=== PATIENT | female | born 1930 | race Caucasian/White ===

== ENCOUNTER 2016-11-12 13:44 | Inpatient (IN) | payer MEDICARE, BC, OTHER ==
[~2016-11-12] VITALS: Ht 154.9 cm; Wt 49.9 kg
[~2016-11-12 13:44] MED LIST: *ECHO -; /AMLO25TA; /BENA10TA; /ESOM40CA; /WARF25TA; /WARF5TA; ACET65TA; AMLO10TA PO; BACTROCREA TOPICALLY; BENA10TA PO; BONIVA; CALCCHW12; CALCIUM SUPPLIMENT; CELE10TA; CELEXA10 PO; COLA100C2; COUM2.5T17 PO; DETR2CAP PO; DRIS50002 PO; DRISDOL; FERROUS325 PO; FLAXOIL; LOTE10TA11 PO; METO5TAB2; MILKSUS PO; MIRA3350 PO; MIRALEX; NORV5TAB PO; PERC5TAB12 PO; PHENERGA25 PO; PRAV1TAB39 PO; PRAV40TA; PRAVACHOL; REGL5TAB2 PO; SENN8.6T5; SENO8.6T10 PO; SLOW160T12 PO; SLOWTAB; THERGRAN; TOLT2TA; TYLE325T5 PO; VANC125C2 PO; VICO5TAB; VICO5TAB16 PO; VITA-113; VITACAP8; VITAMIN B-12; VITAMIN D; WARF-18 PO; WELCHOL; ZEBE5TAB; ZEBE5TAB PO; ZOFR20TA PO; [UNRECOGNIZED DRUG - OTHER]; magnesium
[2016-11-12] MEDS ORDERED: XARE15TA PO (14:12)
[2016-11-12 15:43] LABS: ADD MORPHOLOGY? NO; BASO % 0.2 % (0.0-1.0); EOS % 0.1 % (0.0-3.0); IMMATURE GRANULOCYTE % 0.7 % (0-0); LYMPH # 0.9 10^3/uL (1.5-4.5); LYMPH % 6.7 % (24.0-44.0); MEAN CORPUSCULAR HEMOGLOBIN 27.7 pg (27.0-33.0); MEAN CORPUSCULAR HGB CONC 31.7 g/dl (32.0-36.5); MEAN CORPUSCULAR VOLUME 87.5 fl (80.0-96.0); MONO # 1.3 10^3/uL (0.0-0.8); MONO % 9.6 % (0.0-5.0); NEUTROPHILS # 11.1 10^3/uL (1.8-7.7); NEUTROPHILS % 82.7 % (36.0-66.0); PLATELET COUNT, AUTOMATED 265 10^3/uL (150-450); RED CELL DISTRIBUTION WIDTH 14.1 % (11.5-14.5); WHITE BLOOD COUNT 13.5 10^3/uL (4.0-10.0)
[2016-11-12 15:50] LABS: VENOUS BASE EXCESS -3.9 (-2.0-2.0); VENOUS O2 SATURATION 56.7 % (60.0-80.0); VENOUS PARTIAL PRESSURE CO2 57.7 mmHg (38.0-50.0); VENOUS PARTIAL PRESSURE O2 34.6 mmHg (30.0-50.0); VENOUS STANDARD HCO3 20.5 MEQ/L; VENOUS TOTAL CO2 25.8 MEQ/L (24.0-28.0)
[2016-11-12 16:08] LABS: ALBUMIN 3.1 GM/DL (3.2-5.2); ALBUMIN/GLOBULIN RATIO 0.79 (1.00-1.93); BILIRUBIN,DIRECT 0.5 MG/DL (0.0-0.2); BILIRUBIN,TOTAL 1.4 MG/DL (0.2-1.0); CALCIUM LEVEL 8.7 MG/DL (8.8-10.2); CREATININE FOR GFR 1.4 MG/DL (0.55-1.02); GLOMERULAR FILTRATION RATE 37.9 (>32); POTASSIUM SERUM 4.5 MEQ/L (3.5-5.1)
--- NOTE | 2016-11-12 16:34 | REP ---
CHEST, TWO VIEWS: There is no evidence of acute infiltrate. No pleural effusion is seen. The heart is normal in size. The mediastinal silhouette is unremarkable. The visualized osseous structures are intact. There are multiple sternal wires. IMPRESSION: No acute pulmonary disease. Signed by Leland Torres MD 11/12/2016 05:23 P
[2016-11-12] MEDS ORDERED: NS 1,000 ML IV ONE (17:45)
[2016-11-12] MEDS ORDERED: CEPHALEXIN 500 MG CAP PO ONE (19:15)
[2016-11-12] MEDS ORDERED: ONDANSETRON 4MG/2ML VIAL (J2405) IV PRN (20:30)
[2016-11-12] MEDS ORDERED: NS 1,000 ML IV SCH (21:00)
[2016-11-12 21:04] LABS: REASON FOR REVIEW COMPREHENSIVE REVIEW
[2016-11-12 21:07] LABS: RETIC HEMOGLOBIN EQUIVALENT 27.4 pg (24-36); RETICULOCYTE % 1.7 % (0.5-1.5)
[2016-11-12 21:40] LABS: INR 1.47
[2016-11-12 21:52] VITALS: BP 140/60
[2016-11-12] MEDS: SENOKOT S TAB PO SCH (21:59)
[2016-11-12 22:00] LABS: PERCENT SATURATION 6.7 % (13.2-45.0)
--- NOTE | 2016-11-12 22:10 | REPUSA ---
Clinical statement: elevated bilirubin. Findings: The liver demonstrates uniform echotexture and echogenicity, with no mass lesions. The gall bladder is distended and contains numerous echogenic shattering foci. There is no evidence of gallbla dder wall thickening. The common bile duct measures 5 mm and is within normal limits. The pancreas de monstrates normal contour and appearance. The spleen is unremarkable. The right kidney measures 9.2 c m in length and the left kidney measures 9.1 cm in length. There is no evidence of hydronephrosis or nephrolithiasis. The visualized portions of the aorta and inferior vena cava are within normal limits . No ascites are seen. Impression: Cholelithiasis without evidence of acute cholecystitis.
[2016-11-12 22:30] VITALS: BP_SYST 139; BP_SYST 142; BP_SYST 150; BP_DIAS 60; BP_DIAS 62; BP_DIAS 63
--- NOTE | 2016-11-12 22:49 | HPE ---
DATE OF ADMISSION: 11/12/2016 PRIMARY CARE PROVIDER: Dr. Speedy Lea. CHIEF COMPLAINT: Nausea, vomiting, dizziness, stomach upset. HISTORY OF PRESENT ILLNESS: This is an 86-year-old female patient, history limited secondary to dementia, with underlying medical history of hypertension, osteoporosis, vitamin D deficiency, stroke, anemia, history of Clostridium (C.) difficile last year, and as per patient also has history of vertigo secondary to inner ear problem. Baseline lives at home with daughter, ambulating with a cane. Has not had any recent fall. Presented since yesterday with stomach upset, no pain, with nausea and vomiting two times today, nonbloody, nonbilious. Denies any dark stool, diarrhea. Last bowel movement was this morning. Denies any melena or hematemesis. Reported feeling dizzy and lightheaded. As per patient, occasionally it is positional, occasionally it just happens on its own. The patient reported that she does have inner ear problem that causes dizziness. Otherwise, denies any chest pain, pressure, discomfort, shortness of breath, paresthesia. No recent gastrointestinal (GI) bleed. There is no anticoagulation. Has history of porcine aortic valve. Last year, the patient as in the hospital with rectal bleeding as well, in which anticoagulation was on hold. Denies any constipation, diarrhea. Denies any fever, chills, sick contacts, coughing, palpitations. ALLERGIES: FERRIC OXIDE, LATEX. PAST MEDICAL HISTORY: 1. Bioprosthetic aortic valve. 2. Hypertension. 3. Osteoporosis. 4. C. Difficile. 5. Vitamin D deficiency. 6. Stroke with no residual deficit. 7. Anemia. 8. Questionable history of congestive heart failure but not documented. PAST SURGICAL HISTORY: 1. Hysterectomy. 2. Tonsillectomy. 3. Porcine aortic valve. 4. Appendectomy. SOCIAL HISTORY: Denies smoking or illicit drug use or alcohol use. Lives at home with daughter. FAMILY HISTORY: Denies family history of cancer. REVIEW OF SYSTEMS: Reported lightheadedness, nausea, vomiting, stomach upset. All other review of systems has been negative. The patient's review of systems was limited because the patient is a poor historian. HOME MEDICATIONS: - Norvasc 5 mg by mouth daily - benazepril 10 mg by mouth daily - Xarelto 15 mg by mouth at bedtime PHYSICAL EXAMINATION: VITAL SIGNS: Temperature 97.6, pulse 70, blood pressure 140/60 GENERAL: Patient alert, comfortable in no acute distress. HEENT: Normocephalic, atraumatic. PULMONARY: Bilaterally clear to auscultation. CARDIAC: Regular rate and rhythm. Systolic murmur with end-systolic snap. ABDOMEN: Soft, nontender, nondistended. Positive bowel sounds. EXTREMITIES: No edema bilateral lower extremities. NEUROLOGIC: Is able to move bilateral upper and lower extremities with no limitation. RECTAL: Patient refused rectal exam, but is counseled on the need for followup with stool for occult. ELECTROCARDIOGRAM: EKG sinus rhythm at 96. No ST segment changes. LABORATORY DATA: WBC 13.5, hemoglobin and hematocrit 9.5 over 30, platelets 265. Chemistry: Sodium 137, potassium 4.5, chloride 103, bicarbonate 25, BUN 40, creatinine 1.4, lactic acid 2.6, repeat 0.9, total bilirubin 1.4, direct bilirubin 0.5. Cardiac enzymes negative times one. IMAGING: Chest x-ray shows within normal limits. No acute pulmonary disease. ASSESSMENT AND PLAN: This is an 86-year-old female patient with underlying medical history of hypertension, osteoarthritis, Clostridium (C.) difficile infection, vitamin D deficiency, stroke with no residual deficit, anemia, questionable congestive heart failure (CHF), and a bioprosthetic aortic valve replacement, questionable history of paroxysmal atrial fibrillation as well on anticoagulation with Xarelto. The patient presented since yesterday with lightheadedness, stomach upset, nausea and vomiting. 1. Lightheadedness. The patient stated that she has chronic inner ear problems causing her to be lightheaded. Currently no focal neurological deficit on exam. We will get MRI of the brain. Vestibular physical therapy. Followup orthostatic vital signs. 2. Acute kidney injury, likely secondary to prerenal azotemia. Intravenous (IV) fluids have been given. Will continue to monitor BUN and creatinine. 3. Stomach upset with elevated bilirubin and nausea and vomiting. Clear liquid diet for now. IV fluids have been given. Will get ultrasound of the abdomen, as well as CT of the abdomen and lipase. Advance diet as tolerated. Zofran as needed. Protonix twice a day. 4. Anemia. The patient does have a history of gastrointestinal (GI) bleeding. Currently hemodynamically stable. Followup orthostatic vital signs. Holding Xarelto. Anemia workup is ordered. Patient refused rectal exam. Will get stool occult. Serial hemoglobin and hematocrit. Consented for transfusion. 5. Hypertension. Continue Norvasc and benazepril. Monitor blood pressure. Adjust as needed. 6. Questionable history of paroxysmal atrial fibrillation with Xarelto on hold. Patient not on any beta blockers. 7. History of aortic valve replacement with bioprosthetic valve. Holding Xarelto at this time. Outpatient followup. 8. Lactic acidosis, resolved. 9. Leukocytosis, possibly reactive to GI symptoms. Possibly due to gastritis. Followup cultures. IV fluids have been ordered. Urinalysis (UA) appreciated. Will continue to monitor. Withholding antibiotics given no obvious source of infection. 10. Deep venous thrombosis (DVT) prophylaxis. Sequential compression devices. Avoid anticoagulation given patient does have a history of GI bleed and has been actively worked up for GI at this point. If hemoglobin and hematocrit are stable , will consider restarting Xarelto. DISPOSITION: Pending further workup, clinical improvement, physical therapy. MTDD
[2016-11-12] MEDS: PANTOPRAZOLE 40MG INJ (PROTONIX) (C9113) IV SCH (23:00)
--- NOTE | 2016-11-12 23:27 | REPUSA ---
CT of the abdomen and pelvis without contrast Clinical statement: Pain. Elevated bilirubin. Technique: Multiple axial CT images were obtained from the base of the lungs to the floor of the pelv is utilizing 5 mm axial slices without administration of contrast. Coronal and sagittal reconstructio ns were also obtained. Comparison: 05/29/2015. Findings: Chest: The visualized lung bases are clear. Abdomen: The kidneys are normal in size bilaterally. There is no evidence of hydronephrosis or nephro lithiasis. The gallbladder is distended, with numerous gallstones appreciated. No pericholecystic inf lammatory changes are seen however. The liver, spleen, pancreas, and adrenal glands are unremarkable. The aorta demonstrates normal caliber and contour. There is no abdominal lymphadenopathy or ascites. Pelvis: The bowel is unremarkable, with no obstructive or inflammatory changes. The urinary bladder i s within normal limits. There is no pelvic lymphadenopathy or ascites. The other pelvic structures ap pear unremarkable. Bones: There are no suspicious osseous abnormalities seen. There is open reduction internal fixation of the proximal right femur. Chronic compression abnormality of L2 is unchanged. There is a large dis c osteophyte complex at L1/L2. Impression: 1. Cholelithiasis, without discrete evidence of acute cholecystitis. This corresponds with the findin gs of the earlier ultrasound 11/12/2016. 2. No evidence of hydronephrosis or nephrolithiasis. 3. The other CT findings are grossly stable. 3. No obstructive or inflammatory bowel changes.
[2016-11-13] VITALS (7 sets, daily range): BP systolic 121–142; BP diastolic 55–65
[2016-11-13 06:19] LABS: MEAN CORPUSCULAR HEMOGLOBIN 28.1 pg (27.0-33.0); MEAN CORPUSCULAR HGB CONC 33.2 g/dl (32.0-36.5); MEAN CORPUSCULAR VOLUME 84.6 fl (80.0-96.0); RED CELL DISTRIBUTION WIDTH 13.7 % (11.5-14.5); WHITE BLOOD COUNT 8.3 10^3/uL (4.0-10.0)
[2016-11-13 06:46] LABS: ALBUMIN 2.4 GM/DL (3.2-5.2); ALBUMIN/GLOBULIN RATIO 0.62 (1.00-1.93); ALKALINE PHOSPHATASE 42 U/L (45-117); ALT/SGPT 10 U/L (12-78); ANION GAP 7 MEQ/L (8-16); AST/SGOT 16 U/L (15-37); BILIRUBIN,TOTAL 1.1 MG/DL (0.2-1.0); BLOOD UREA NITROGEN 33 MG/DL (7-18); CALCIUM LEVEL 8.2 MG/DL (8.8-10.2); CARBON DIOXIDE LEVEL 26 MEQ/L (21-32); CHLORIDE LEVEL 106 MEQ/L (98-107); CREATININE FOR GFR 0.93 MG/DL (0.55-1.02); GLOMERULAR FILTRATION RATE > 60.0 (>32); GLUCOSE, FASTING 88 MG/DL (83-110); MAGNESIUM LEVEL 1.7 MG/DL (1.8-2.4); POTASSIUM SERUM 3.5 MEQ/L (3.5-5.1); SODIUM LEVEL 139 MEQ/L (136-145); TOTAL PROTEIN 6.3 GM/DL (6.4-8.2)
--- NOTE | 2016-11-13 08:26 | ECGEPIP ---
Stationary ECG Study [facility] - ED Test Date: 2016-11-12 Pat Name: ARACELI RIGGINS Department: Room: - Gender: F [employer]: nae : [id number] Requested By: FILOMENA KAMARA Order Number: [id number] Reading MD: Yusuf Brooks Measurements Intervals [place] Rate: 95 P: 83 SC: 160 QRS: -4 QRSD: 87 T: 41 QT: 350 QTc: 440 Interpretive Statements SINUS RHYTHM POSSIBLE LAE SIMILAR TO 05/31/15 Electronically Signed On 11-13-2016 8:26:38 EDT by Yusuf Brooks
[2016-11-13] MEDS: SENOKOT S TAB PO SCH ×2 (10:27→20:47)
[2016-11-13] MEDS: PANTOPRAZOLE 40MG INJ (PROTONIX) (C9113) IV SCH ×2 (10:28→20:47)
[2016-11-13] MEDS: amLODIPine 5 MG TAB PO SCH (10:28)
[2016-11-13] MEDS: MECLIZINE 25 MG TABLET PO PRN (10:56)
[2016-11-13] MEDS: BENAZEPRIL 5 MG TAB PO SCH (14:48)
[2016-11-13] MEDS ORDERED: MAG SULF 1GM/100ML (MAG RUN) 1 GM in APPROPRIATE DILUENT 1 EA IV ONE (15:00)
[2016-11-14] VITALS (7 sets, daily range): BP systolic 113–145; BP diastolic 58–67
[2016-11-14] MEDS: ACETAMINOPHEN TAB 650MG DOSE (2X325MG) PO PRN ×3 (00:03→16:01)
[2016-11-14 06:17] LABS: MEAN CORPUSCULAR HEMOGLOBIN 28.1 pg (27.0-33.0); MEAN CORPUSCULAR HGB CONC 32.8 g/dl (32.0-36.5); MEAN CORPUSCULAR VOLUME 85.7 fl (80.0-96.0); RED CELL DISTRIBUTION WIDTH 13.7 % (11.5-14.5); WHITE BLOOD COUNT 7.2 10^3/uL (4.0-10.0)
[2016-11-14 06:39] LABS: ALBUMIN 2.4 GM/DL (3.2-5.2); ALBUMIN/GLOBULIN RATIO 0.63 (1.00-1.93); ALKALINE PHOSPHATASE 43 U/L (45-117); ALT/SGPT 10 U/L (12-78); ANION GAP 7 MEQ/L (8-16); AST/SGOT 17 U/L (15-37); BILIRUBIN,TOTAL 1.5 MG/DL (0.2-1.0); BLOOD UREA NITROGEN 21 MG/DL (7-18); CALCIUM LEVEL 8.5 MG/DL (8.8-10.2); CARBON DIOXIDE LEVEL 25 MEQ/L (21-32); CHLORIDE LEVEL 107 MEQ/L (98-107); CREATININE FOR GFR 0.85 MG/DL (0.55-1.02); GLOMERULAR FILTRATION RATE > 60.0 (>32); GLUCOSE, FASTING 86 MG/DL (83-110); MAGNESIUM LEVEL 1.7 MG/DL (1.8-2.4); POTASSIUM SERUM 3.3 MEQ/L (3.5-5.1); SODIUM LEVEL 139 MEQ/L (136-145); TOTAL PROTEIN 6.2 GM/DL (6.4-8.2)
--- NOTE | 2016-11-14 08:16 | REP ---
MRI BRAIN WITHOUT CONTRAST: HISTORY: Dizziness. COMPARISON: 12/04/2008. Areas of increased signal intensity on T2-weighted images are present in the periventricular and subcortical white matter and jayden. This represents small vessel ischemic disease. There is no intraparenchymal hemorrhage, infarct, mass or midline shift. The ventricular system and cortical sulci are dilated consistent with mild volume loss. There is no extracerebral collection. A small meningioma is present overlying the left frontal temporal convexity. The meningioma measures 1.5 cm in transverse by 1.9 cm in AP dimensions and is unchanged in size compared to the previous study. The sinuses are clear. IMPRESSION: 1. Small vessel ischemic disease. 2. Moderate volume loss. 3. There has been no change in size of the small left frontotemporal convexity meningioma compared to the previous study. Signed by Nico Hadley MD 11/14/2016 08:23 A
--- NOTE | 2016-11-14 08:49 | IPN ---
DATE OF SERVICE: 11/13/2016 Ms. Davis is feeling well this morning, more energetic. Feels better than when she arrived yesterday. No chest pain. Tolerating a diet. Daughter is at bedside. Temperature is 98.4, pulse 86, respiratory rate 18, blood pressure 129/60, 98% on room air. Intake and output (I and O) notable for a positive fluid balance of 600. No bowel movements noted. Body mass index is 21.5. Awake, appropriately interactive, pleasantly conversant. Breathing is symmetrical. I-to-E ratio is 1:3. Heart is distant sounding. Abdomen soft. Radial pulses 2+. Capillary refill is 2 seconds. White cell count 8.3, hemoglobin is 7.9. BUN 33, creatinine 0.93, magnesium is 1.7. Iron studies are consistent with anemia of chronic disease. My assessment is as follows: This is an 86-year-old who presented with lightheadedness, presyncope, and gastroenteritis. The plan is as follows: 1. The patient has presyncope. Is monitored on telemetry. MRI of the brain is ordered and pending. 2. The patient has resolving acute kidney injury. Seems to be much better than yesterday. 3. The patient has developing anemia, possibly dilutional, possibly related to gastrointestinal (GI) blood loss. Will transfuse this morning as ordered. 4. The patient has hypertension. Blood pressure is reasonably well controlled in the current setting. 5. The patient has possible paroxysmal atrial fibrillation with history of aortic valve placement, bioprosthetic valve. Is on Xarelto for that purpose, which is currently on hold in this setting. 6. Deep venous thrombosis (DVT) prophylaxis is mechanical.
[2016-11-14] MEDS ORDERED: MAG SULF 1GM/100ML (MAG RUN) 1 GM in APPROPRIATE DILUENT 1 EA IV ONE (09:00)
[2016-11-14] MEDS ORDERED: POTASSIUM CHLORIDE 10 MEQ SR TABLET PO ONE (09:00)
[2016-11-14] MEDS: PANTOPRAZOLE 40MG INJ (PROTONIX) (C9113) IV SCH ×2 (09:44→20:11)
[2016-11-14] MEDS: MECLIZINE 25 MG TABLET PO PRN (09:45)
[2016-11-14] MEDS: amLODIPine 5 MG TAB PO SCH (09:46)
[2016-11-14] MEDS: SENOKOT S TAB PO SCH ×2 (09:46→20:11)
[2016-11-14] MEDS: BENAZEPRIL 5 MG TAB PO SCH (09:54)
--- NOTE | 2016-11-14 11:25 | IPN ---
DATE OF SERVICE: 11/14/2016 Ms. Davis is feeling better this morning. She has no complaints of pain. No chest pain. No shortness of breath. Is tolerating a diet. Would like to get something better to eat. Temperature is 98.2, pulse 89, respiratory rate 16, blood pressure 145/65, 98% on room air. Intake and output (I and O) notable for a positive fluid balance of 1890. Awake, appropriately interactive, pleasantly conversant. Breathing is symmetrical. I-to-E ratio is 1:3. no significant arrhythmia on monitor. Abdomen soft, doughy, nontender. White cell count 7.2, hemoglobin 9.8, platelets 215. BUN 21, creatinine 0.85, potassium 3.3, magnesium is 1.7. My assessment is as follows: This is an 86-year-old who presented with lightheadedness, presyncope, and gastroenteritis. The plan is as follows: 1. The patient has presyncope. Is monitored on telemetry. No significant arrhythmia is noted. MRI shows old meningioma. 2. The patient has resolving acute kidney injury. It is improved from yesterday. Can stop intravenous (IV) fluid at this point. 3. The patient had anemia, which was possibly related to gastrointestinal (GI) blood loss and/or dilution. Hemoglobin and hematocrit is stable. Discontinued her standing laboratory orders. 4. The patient has hypertension. Blood pressure is reasonably well controlled. 5. The patient has paroxysmal atrial fibrillation and history of aortic valve, bioprosthetic valve. Is on Xarelto. 6. Deep venous thrombosis (DVT) prophylaxis is mechanical. MTDD
[2016-11-14] MEDS: CEFDINIR 300 MG CAP (OMNICEF) PO SCH ×2 (12:30→20:11)
[2016-11-14] MEDS ORDERED: CALCIUM CARBONATE 500 MG CHEW U/D PO PRN (13:00)
[2016-11-15 04:00] VITALS: BP_SYST 132; BP_SYST 140; BP_SYST 154; BP_DIAS 66; BP_DIAS 67; BP_DIAS 70
[2016-11-15 06:03] LABS: MEAN CORPUSCULAR HGB CONC 32.6 g/dl (32.0-36.5); MEAN CORPUSCULAR VOLUME 85.7 fl (80.0-96.0); RED CELL DISTRIBUTION WIDTH 13.9 % (11.5-14.5); WHITE BLOOD COUNT 7.5 10^3/uL (4.0-10.0)
[2016-11-15 06:33] LABS: ALBUMIN 2.4 GM/DL (3.2-5.2); ALKALINE PHOSPHATASE 46 U/L (45-117); ALT/SGPT 10 U/L (12-78); ANION GAP 6 MEQ/L (8-16); AST/SGOT 16 U/L (15-37); BLOOD UREA NITROGEN 18 MG/DL (7-18); CALCIUM LEVEL 8.3 MG/DL (8.8-10.2); CARBON DIOXIDE LEVEL 25 MEQ/L (21-32); CHLORIDE LEVEL 108 MEQ/L (98-107); CREATININE FOR GFR 0.87 MG/DL (0.55-1.02); GLOMERULAR FILTRATION RATE > 60.0 (>32); GLUCOSE, FASTING 87 MG/DL (83-110); MAGNESIUM LEVEL 1.8 MG/DL (1.8-2.4); POTASSIUM SERUM 3.9 MEQ/L (3.5-5.1); SODIUM LEVEL 139 MEQ/L (136-145); TOTAL PROTEIN 6.4 GM/DL (6.4-8.2)
[2016-11-15 07:35] VITALS: BP 127/67
[2016-11-15] MEDS: amLODIPine 5 MG TAB PO SCH (08:11)
[2016-11-15] MEDS: SENOKOT S TAB PO SCH ×2 (08:11→21:00)
[2016-11-15] MEDS: CEFDINIR 300 MG CAP (OMNICEF) PO SCH (08:11)
[2016-11-15] MEDS: BENAZEPRIL 5 MG TAB PO SCH (08:11)
[2016-11-15] MEDS: PANTOPRAZOLE 40MG INJ (PROTONIX) (C9113) IV SCH (08:11)
[2016-11-15 10:48] LABS: FOLATE 11.1 NG/ML (>5.4)
[2016-11-15] MEDS: ACETAMINOPHEN TAB 650MG DOSE (2X325MG) PO PRN ×2 (11:36→23:14)
[2016-11-15 12:00] VITALS: BP_SYST 123; BP_SYST 130; BP_SYST 131; BP_DIAS 61; BP_DIAS 66; BP_DIAS 85
--- NOTE | 2016-11-15 13:37 | IPNPDOC ---
Text Note Date of Service The patient was seen on 11/15/16. NOTE Hospitalist Progress Note Subjective: Ms. Davis is feeling better this morning. She states that she has not had any additional episodes of nausea or vomiting. She has been tolerating a normal diet quite well. She does mention that she continues to complain of generalized weakness and fatigue, and she still feels "wobbly" when she stands up, therefore she does not feel safe to go home this time. She was seen and evaluated by physical therapy over the weekend who has deemed her to be not safe for discharge at this time as well, therefore they will continue to work with her and her recuperation and rehabilitation. Objective: General: Awake, alert, oriented 3. She is reclined in a hospital bed at this time. She is in no acute distress. HEENT: Head normocephalic, atraumatic, sclera are nonicteric. Hearing is grossly intact to conversation. Respiratory: Clear to auscultation bilaterally with no significant wheezes, rales, or rhonchi. Cardiovascular: Distant heart sounds, although they appear to be regular rate and rhythm, with no rubs, gallops, or murmur. No events overnight, she is stable on telemetry. Abdomen: Soft, nontender, nondistended, no hepatosplenomegaly appreciated. Bowel sounds present. Extremities: 2+ pulses in the radial and dorsalis pedis bilaterally. No evidence of clubbing or cyanosis. Assessment: 1. Presyncope. No significant arrhythmia noted on telemetry, and no events overnight, MRI only shows an old meningioma. She has been monitored for over 24 hours at this point, I feel that it is [facility] 2. Acute kidney injury. Now resolved. We'll continue to monitor. 3. Anemia. Status post blood transfusion of 1 unit on 11/13/2016. She continues to be stable. We can discontinue Protonix at this time, however we will continue to hold Xarelto at this time. 4. Hypertension. Pressures continue to be within acceptable limits. Continue with Norvasc, Lotensin. 5. DVT prophylaxis with teds and sequentials at this time given her recent history of bleeding My preceptor for this patient encounter was physically present in the building during the encounter and was fully available. As needed, all aspects of the patient interview, examination, medical decision making process, and medical care plan development were reviewed and approved by the preceptor. Preceptor is aware and concurs with the plan as stated in the body of this note and will attest to such by his/her cosignature. VS,Fishbone, I+O VS, Fishbone, I+O Laboratory Tests 11/14/16 14:11 11/15/16 05:33 Red Blood Count 3.36 L, Mean Corpuscular Volume 85.7, Mean Corpuscular Hemoglobin 28.0, Mean Corpuscular Hemoglobin Concent 32.6, Red Cell Distribution Width 13.9, Calcium Level 8.3 L, Aspartate Amino Transf (AST/SGOT) 16, Alanine Aminotransferase (ALT/SGPT) 10 L, Alkaline Phosphatase 46, Total Bilirubin 1.0, Total Protein 6.4, Albumin 2.4 L Vital Signs Date Time Temp Pulse Resp B/P (MAP) Pulse Ox O2 Delivery O2 Flow Rate FiO2 11/15/16 07:35 98.7 97 20 127/67 (87) 98 Room Air I&O- Last 24 Hours up to 6 AM 11/16/16 06:00 Intake Total 120 ml Balance 120 ml SISI OVERTON DO Nov 15, 2016 13:37
[2016-11-15 15:35] VITALS: BP 144/64
[2016-11-15] MEDS: MIRALAX *UNIT DOSE* 17GM PACKET PO SCH (18:35)
[2016-11-15 20:30] VITALS: BP_SYST 123; BP_SYST 125; BP_SYST 138; BP_DIAS 66; BP_DIAS 68; BP_DIAS 85
[2016-11-15 22:00] VITALS: BP 150/69
[2016-11-16 06:00] VITALS: BP 148/82
[2016-11-16 06:39] LABS: MEAN CORPUSCULAR HEMOGLOBIN 28.4 pg (27.0-33.0); MEAN CORPUSCULAR HGB CONC 32.6 g/dl (32.0-36.5); MEAN CORPUSCULAR VOLUME 86.9 fl (80.0-96.0); RED CELL DISTRIBUTION WIDTH 14.1 % (11.5-14.5); WHITE BLOOD COUNT 8.7 10^3/uL (4.0-10.0)
[2016-11-16 07:59] LABS: ALBUMIN 2.5 GM/DL (3.2-5.2); ALBUMIN/GLOBULIN RATIO 0.58 (1.00-1.93); ALKALINE PHOSPHATASE 54 U/L (45-117); ALT/SGPT 14 U/L (12-78); ANION GAP 6 MEQ/L (8-16); AST/SGOT 17 U/L (15-37); BILIRUBIN,TOTAL 0.9 MG/DL (0.2-1.0); BLOOD UREA NITROGEN 16 MG/DL (7-18); CALCIUM LEVEL 8.7 MG/DL (8.8-10.2); CARBON DIOXIDE LEVEL 26 MEQ/L (21-32); CHLORIDE LEVEL 106 MEQ/L (98-107); GLOMERULAR FILTRATION RATE > 60.0 (>32); GLUCOSE, FASTING 92 MG/DL (83-110); MAGNESIUM LEVEL 1.6 MG/DL (1.8-2.4); POTASSIUM SERUM 3.9 MEQ/L (3.5-5.1); SODIUM LEVEL 138 MEQ/L (136-145); TOTAL PROTEIN 6.8 GM/DL (6.4-8.2)
[2016-11-16] MEDS ORDERED: MAG SULF 1GM/100ML (MAG RUN) 1 GM in APPROPRIATE DILUENT 1 EA IV ONE (09:00)
--- NOTE | 2016-11-16 10:47 | IPNPDOC ---
Text Note Date of Service The patient was seen on 11/16/16. NOTE Hospitalist Progress Note Subjective: Ms. Davis is sitting upright in bed this morning. She was able to tolerate her breakfast without any trouble. She does continue to feel unsteady on her feet. She is working with physical therapy regarding vestibular training, per their note it appears that they will attempt a Tico-Hallpike maneuver as she appears to have benign paroxysmal positional vertigo. Otherwise, she is not cleared for discharge at this time and she is not safe to go home from their recommendations. Objective: General: Awake, alert, oriented 3. She is reclined in a hospital bed at this time. She is in no acute distress. HEENT: Head normocephalic, atraumatic, sclera are nonicteric. Hearing is grossly intact to conversation. Respiratory: Clear to auscultation bilaterally with no significant wheezes, rales, or rhonchi. Cardiovascular: Distant heart sounds, although they appear to be regular rate and rhythm, with no rubs, gallops, or murmur. No events overnight, she is stable on telemetry. Abdomen: Soft, nontender, nondistended, no hepatosplenomegaly appreciated. Bowel sounds present. Extremities: 2+ pulses in the radial and dorsalis pedis bilaterally. No evidence of clubbing or cyanosis. Assessment: 1. Presyncope, and unsteady gait him. This is now presumed to be from BPPV, she is working with physical therapy in order to improve this. Her from their notes it appears that they're going to attempt a Tico-Hallpike maneuver today prior to therapy. 2. Acute kidney injury. Now resolved. We'll continue to monitor. 3. Anemia. Status post blood transfusion of 1 unit on 11/13/2016. She continues to be stable. We can discontinue Protonix at this time, however we will continue to hold Xarelto at this time. 4. Hypertension. Pressures continue to be within acceptable limits. Continue with NorJessi osman. 5. Paroxysmal atrial fibrillation with history of aortic valve replacement, bioprosthetic valve. Her CHADsVASc score is 4 points for age greater than 75, female, and a history of hypertension which correlates with a 4.8% stroke risk per year. Her HAS-BLED score is only 1 point for age greater than 65, putting her at a relatively low risk of major bleeding, therefore we will resume her Xarelto today and continue to monitor for drops in her H&H. If she bleeds again , consideration may be made to permanently discontinue this. She will be on 15mg QHS as she is a frail elderly woman with little muscle mass, and I suspect that her creatinine clearance is somewhere in the 10-50 range 5. DVT prophylaxis with teds and sequentials at this time given her recent history of bleeding My preceptor for this patient encounter was physically present in the building during the encounter and was fully available. As needed, all aspects of the patient interview, examination, medical decision making process, and medical care plan development were reviewed and approved by the preceptor. Preceptor is aware and concurs with the plan as stated in the body of this note and will attest to such by his/her cosignature. VS,Fishbone, I+O VS, Fishbone, I+O Laboratory Tests 11/16/16 06:24 Red Blood Count 3.88 L, Mean Corpuscular Volume 86.9, Mean Corpuscular Hemoglobin 28.4, Mean Corpuscular Hemoglobin Concent 32.6, Red Cell Distribution Width 14.1 11/16/16 07:03 Calcium Level 8.7 L, Aspartate Amino Transf (AST/SGOT) 17, Alanine Aminotransferase (ALT/SGPT) 14, Alkaline Phosphatase 54, Total Bilirubin 0.9, Total Protein 6.8, Albumin 2.5 L Vital Signs Date Time Temp Pulse Resp B/P (MAP) Pulse Ox O2 Delivery O2 Flow Rate FiO2 11/16/16 06:00 97.9 98 20 148/82 (104) 98 Room Air I&O- Last 24 Hours up to 6 AM 11/17/16 06:00 Intake Total 180 ml Balance 180 ml SISI OVERTON DO Nov 16, 2016 10:35
[2016-11-16] MEDS: BENAZEPRIL 5 MG TAB PO SCH (11:01)
[2016-11-16] MEDS: MIRALAX *UNIT DOSE* 17GM PACKET PO SCH (11:25)
[2016-11-16] MEDS: SENOKOT S TAB PO SCH ×2 (11:26→20:02)
[2016-11-16] MEDS: amLODIPine 5 MG TAB PO SCH (11:26)
[2016-11-16] MEDS: ACETAMINOPHEN TAB 650MG DOSE (2X325MG) PO PRN ×2 (12:38→20:03)
[2016-11-16 14:00] VITALS: BP 122/54
[2016-11-16] MEDS: RIVAROXABAN 15 MG TAB (XARELTO) PO SCH (17:46)
[2016-11-16 22:00] VITALS: BP 137/71
[2016-11-17 06:00] VITALS: BP 150/74
[2016-11-17 06:22] LABS: MEAN CORPUSCULAR HEMOGLOBIN 28.2 pg (27.0-33.0); MEAN CORPUSCULAR HGB CONC 32.4 g/dl (32.0-36.5); MEAN CORPUSCULAR VOLUME 87.1 fl (80.0-96.0); WHITE BLOOD COUNT 8.8 10^3/uL (4.0-10.0)
[2016-11-17 06:40] LABS: ALBUMIN 2.5 GM/DL (3.2-5.2); ALBUMIN/GLOBULIN RATIO 0.66 (1.00-1.93); ALKALINE PHOSPHATASE 56 U/L (45-117); ALT/SGPT 12 U/L (12-78); ANION GAP 8 MEQ/L (8-16); AST/SGOT 18 U/L (15-37); BILIRUBIN,TOTAL 0.7 MG/DL (0.2-1.0); BLOOD UREA NITROGEN 14 MG/DL (7-18); CALCIUM LEVEL 8.4 MG/DL (8.8-10.2); CARBON DIOXIDE LEVEL 27 MEQ/L (21-32); CHLORIDE LEVEL 104 MEQ/L (98-107); CREATININE FOR GFR 0.76 MG/DL (0.55-1.02); GLOMERULAR FILTRATION RATE > 60.0 (>32); GLUCOSE, FASTING 94 MG/DL (83-110); MAGNESIUM LEVEL 1.6 MG/DL (1.8-2.4); POTASSIUM SERUM 3.8 MEQ/L (3.5-5.1); SODIUM LEVEL 139 MEQ/L (136-145); TOTAL PROTEIN 6.3 GM/DL (6.4-8.2)
[2016-11-17] MEDS: SENOKOT S TAB PO SCH ×2 (08:48→19:25)
[2016-11-17] MEDS: MAG SULF 1GM/100ML (MAG RUN) 1 GM in APPROPRIATE DILUENT 1 EA IV SCH ×2 (08:48→08:49)
[2016-11-17] MEDS: MIRALAX *UNIT DOSE* 17GM PACKET PO SCH (08:49)
[2016-11-17] MEDS: amLODIPine 5 MG TAB PO SCH (08:49)
[2016-11-17] MEDS: BENAZEPRIL 5 MG TAB PO SCH (09:00)
[2016-11-17 14:00] VITALS: BP 122/59
[2016-11-17] MEDS: RIVAROXABAN 15 MG TAB (XARELTO) PO SCH (17:18)
[2016-11-17] MEDS: ACETAMINOPHEN TAB 650MG DOSE (2X325MG) PO PRN (19:25)
--- NOTE | 2016-11-17 19:59 | IPNPDOC ---
Date Seen The patient was seen on 11/17/16. Progress Note Hospitalist Progress Note Subjective: Ms. Davis is sitting in the chair this morning. She does not have any complaints at this time. She does state that she continues to have vertigo whenever she tries to stand up. Otherwise, she decided to complaints at this time. She denies any nausea, vomiting, GI upset or pain. And the remainder of her review of systems is negative. Objective: General: Awake, alert, oriented 3. She is reclined in a hospital bed at this time. She is in no acute distress. HEENT: Head normocephalic, atraumatic, sclera are nonicteric. Hearing is grossly intact to conversation. Respiratory: Clear to auscultation bilaterally with no significant wheezes, rales, or rhonchi. Cardiovascular: Distant heart sounds, although they appear to be regular rate and rhythm, with no rubs, gallops, or murmur. Abdomen: Soft, nontender, nondistended, no hepatosplenomegaly appreciated. Bowel sounds present. Extremities: 2+ pulses in the radial and dorsalis pedis bilaterally. No evidence of clubbing or cyanosis. Assessment: 1. Presyncope, unsteady gait, vertigo. Physical therapy did attempt a disc's Hallpike maneuver with limited success. She will continue on meclizine at this time, and continue to work with physical therapy. 2. Acute kidney injury. Resolved. 3. Anemia. Status post blood transfusion of 1 unit on 11/13/2016. She continues to be stable. Xarelto has now been restarted. 4. Hypertension. Pressures continue to be within acceptable limits. Continue with Norvasc, Lotensin. 5. Paroxysmal atrial fibrillation with history of aortic valve replacement, bioprosthetic valve. Continue with Xarelto 5. DVT prophylaxis with Xarelto My preceptor for this patient encounter was physically present in the building during the encounter and was fully available. As needed, all aspects of the patient interview, examination, medical decision making process, and medical care plan development were reviewed and approved by the preceptor. Preceptor is aware and concurs with the plan as stated in the body of this note and will attest to such by his/her cosignature. VS, I&O, 24H, Fishbone Vital Signs/I&O Vital Signs Date Time Temp Pulse Resp B/P (MAP) Pulse Ox O2 Delivery O2 Flow Rate FiO2 11/17/16 14:00 98.6 79 16 122/59 (80) 97 Room Air I&O- Last 24 Hours up to 6 AM 11/18/16 06:00 Intake Total 600 ml Output Total 0 ml Balance 600 ml Laboratory Data 24H LABS Laboratory Tests 2 11/17/16 05:27: Anion Gap 8, Glomerular Filtration Rate > 60.0, Blood Urea Nitrogen 14, Creatinine 0.76, Sodium Level 139, Potassium Level 3.8, Chloride Level 104, Carbon Dioxide Level 27, Calcium Level 8.4L, Aspartate Amino Transf (AST/SGOT) 18, Alanine Aminotransferase (ALT/SGPT) 12, Alkaline Phosphatase 56, Total Bilirubin 0.7, Total Protein 6.3L, Albumin 2.5L, Magnesium Level 1.6L, Albumin/ Globulin Ratio 0.66L CBC/BMP Laboratory Tests 11/17/16 05:27 Red Blood Count 3.65 L, Mean Corpuscular Volume 87.1, Mean Corpuscular Hemoglobin 28.2, Mean Corpuscular Hemoglobin Concent 32.4, Red Cell Distribution Width 14.0, Calcium Level 8.4 L, Aspartate Amino Transf (AST/SGOT) 18, Alanine Aminotransferase (ALT/SGPT) 12, Alkaline Phosphatase 56, Total Bilirubin 0.7, Total Protein 6.3 L, Albumin 2.5 L Microbiology Microbiology 11/12/16 Blood Culture - Preliminary, Resulted No Growth after 72 hours. All specime... 11/12/16 Blood Culture - Preliminary, Resulted No Growth after 72 hours. All specime... 11/12/16 Urine Culture - Final, Complete Escherichia Coli SISI OVERTON DO Nov 17, 2016 19:59
[2016-11-17 22:00] VITALS: BP 137/62
[2016-11-18 06:00] VITALS: BP 150/74
[2016-11-18 06:33] LABS: MEAN CORPUSCULAR HEMOGLOBIN 28.5 pg (27.0-33.0); MEAN CORPUSCULAR HGB CONC 33.3 g/dl (32.0-36.5); MEAN CORPUSCULAR VOLUME 85.6 fl (80.0-96.0); RED CELL DISTRIBUTION WIDTH 13.9 % (11.5-14.5); WHITE BLOOD COUNT 8.1 10^3/uL (4.0-10.0)
[2016-11-18 06:50] LABS: ANION GAP 8 MEQ/L (8-16); BLOOD UREA NITROGEN 14 MG/DL (7-18); CALCIUM LEVEL 7.8 MG/DL (8.8-10.2); CARBON DIOXIDE LEVEL 27 MEQ/L (21-32); CHLORIDE LEVEL 104 MEQ/L (98-107); CREATININE FOR GFR 0.78 MG/DL (0.55-1.02); GLOMERULAR FILTRATION RATE > 60.0 (>32); GLUCOSE, FASTING 94 MG/DL (83-110); MAGNESIUM LEVEL 1.5 MG/DL (1.8-2.4); POTASSIUM SERUM 3.8 MEQ/L (3.5-5.1); SODIUM LEVEL 139 MEQ/L (136-145)
[2016-11-18 08:35] VITALS: BP 136/64
[2016-11-18] MEDS: MIRALAX *UNIT DOSE* 17GM PACKET PO SCH (08:58)
[2016-11-18] MEDS: ACETAMINOPHEN TAB 650MG DOSE (2X325MG) PO PRN ×3 (08:59→23:05)
[2016-11-18] MEDS: amLODIPine 5 MG TAB PO SCH (09:00)
[2016-11-18] MEDS: BENAZEPRIL 5 MG TAB PO SCH (09:00)
[2016-11-18] MEDS ORDERED: MAGNESIUM OXIDE 400 MG TAB (MAG-OX) PO SCH (09:00)
[2016-11-18] MEDS: SENOKOT S TAB PO SCH ×2 (09:00→20:07)
[2016-11-18] MEDS: MAGNESIUM OXIDE 400 MG TAB (MAG-OX) PO SCH ×2 (09:01→20:07)
--- NOTE | 2016-11-18 11:28 | IPNPDOC ---
Date Seen The patient was seen on 11/18/16. Progress Note Hospitalist Progress Note Subjective: Ms. Davis who was laying down and then this morning. She states that she is feeling somewhat better. She thinks that she is also doing better with physical therapy, but does still have occasional ringing in her ears as well as intermittent dizziness. Otherwise, she has no complaints at this time. She is tolerating her diet well. Objective: General: Awake, alert, oriented 3. She is in no acute distress. HEENT: Head normocephalic, atraumatic. Hearing is grossly intact to conversation. Respiratory: Clear to auscultation bilaterally with no significant wheezes, rales, or rhonchi. Cardiovascular: Distant heart sounds, regular rate and rhythm, with no rubs, gallops, or murmur. Abdomen: Soft, nontender, nondistended, no hepatosplenomegaly appreciated. Bowel sounds present. Extremities: 2+ pulses in the radial and dorsalis pedis bilaterally. Assessment: 1. Presyncope, unsteady gait, vertigo. Continue with meclizine and recommendations per physical therapy. It appears that she may need a few more days. 2. Acute kidney injury. Resolved. 3. Anemia. Status post blood transfusion of 1 unit on 11/13/2016. She continues to be stable. 4. Hypertension. Pressures continue to be within acceptable limits. Continue with Norvasc, Lotensin. 5. Paroxysmal atrial fibrillation with history of aortic valve replacement, bioprosthetic valve. Continue with Xarelto 6. Hypomagnesemia. She has been started on oral magnesium supplementation. 7. DVT prophylaxis with Xarelto My preceptor for this patient encounter was physically present in the building during the encounter and was fully available. As needed, all aspects of the patient interview, examination, medical decision making process, and medical care plan development were reviewed and approved by the preceptor. Preceptor is aware and concurs with the plan as stated in the body of this note and will attest to such by his/her cosignature. VS, I&O, 24H, Fishbone Vital Signs/I&O Vital Signs Date Time Temp Pulse Resp B/P (MAP) Pulse Ox O2 Delivery O2 Flow Rate FiO2 11/18/16 09:00 136/64 11/18/16 09:00 96 11/18/16 08:35 97.7 16 98 Room Air I&O- Last 24 Hours up to 6 AM 11/19/16 06:00 Intake Total 120 ml Output Total 0 ml Balance 120 ml Laboratory Data 24H LABS Laboratory Tests 2 11/18/16 06:05: Anion Gap 8, Glomerular Filtration Rate > 60.0, Blood Urea Nitrogen 14, Creatinine 0.78, Sodium Level 139, Potassium Level 3.8, Chloride Level 104, Carbon Dioxide Level 27, Calcium Level 7.8L, Magnesium Level 1.5L CBC/BMP Laboratory Tests 11/18/16 06:05 Red Blood Count 3.54 L, Mean Corpuscular Volume 85.6, Mean Corpuscular Hemoglobin 28.5, Mean Corpuscular Hemoglobin Concent 33.3, Red Cell Distribution Width 13.9, Calcium Level 7.8 L Microbiology Microbiology 11/12/16 Blood Culture - Final, Complete NO GROWTH AFTER 5 DAYS 11/12/16 Blood Culture - Final, Complete NO GROWTH AFTER 5 DAYS 11/12/16 Urine Culture - Final, Complete Escherichia Coli SISI OVERTON DO Nov 18, 2016 11:28
[2016-11-18 14:00] VITALS: BP 123/58
[2016-11-18] MEDS: RIVAROXABAN 15 MG TAB (XARELTO) PO SCH (17:39)
[2016-11-18 20:20] VITALS: BP 134/64
[2016-11-19 05:02] VITALS: BP 122/62
[2016-11-19 06:33] LABS: MEAN CORPUSCULAR HEMOGLOBIN 28.1 pg (27.0-33.0); MEAN CORPUSCULAR HGB CONC 32.3 g/dl (32.0-36.5); RED CELL DISTRIBUTION WIDTH 14.1 % (11.5-14.5); WHITE BLOOD COUNT 7.8 10^3/uL (4.0-10.0)
[2016-11-19 07:02] LABS: ANION GAP 8 MEQ/L (8-16); BLOOD UREA NITROGEN 18 MG/DL (7-18); CALCIUM LEVEL 7.7 MG/DL (8.8-10.2); CARBON DIOXIDE LEVEL 26 MEQ/L (21-32); CHLORIDE LEVEL 106 MEQ/L (98-107); CREATININE FOR GFR 0.87 MG/DL (0.55-1.02); GLOMERULAR FILTRATION RATE > 60.0 (>32); GLUCOSE, FASTING 86 MG/DL (83-110); MAGNESIUM LEVEL 1.8 MG/DL (1.8-2.4); SODIUM LEVEL 140 MEQ/L (136-145)
[2016-11-19] MEDS: BENAZEPRIL 5 MG TAB PO SCH (08:41)
[2016-11-19] MEDS: MAGNESIUM OXIDE 400 MG TAB (MAG-OX) PO SCH ×2 (08:41→21:03)
[2016-11-19] MEDS: SENOKOT S TAB PO SCH ×2 (08:41→21:03)
[2016-11-19] MEDS: MIRALAX *UNIT DOSE* 17GM PACKET PO SCH (08:41)
[2016-11-19] MEDS: amLODIPine 5 MG TAB PO SCH (08:42)
[2016-11-19] MEDS: ACETAMINOPHEN TAB 650MG DOSE (2X325MG) PO PRN ×3 (08:42→21:03)
--- NOTE | 2016-11-19 10:59 | IPNPDOC ---
Date Seen The patient was seen on 11/19/16. Progress Note Hospitalist Progress Note Subjective: Ms. Davis is once again in a good mood this morning. She states that her dizziness and tinnitus, and go, but she now feels as though she may have to learn to live with them. I explained to her that she is on appropriate medication for this, and hopefully it will improve, however, a good attitude is always appreciated. Otherwise, she is tolerating her diet well, she has no further complaints at this time. The remainder of her review of systems is negative. Objective: General: Awake, alert, oriented 3. She is in no acute distress. HEENT: Head normocephalic, atraumatic. Hearing is grossly intact to conversation. Respiratory: Clear to auscultation bilaterally with no significant wheezes, rales, or rhonchi. Cardiovascular: Distant heart sounds, regular rate and rhythm, with no rubs, gallops, or murmur. Abdomen: Soft, nontender, nondistended, no hepatosplenomegaly appreciated. Bowel sounds present. Extremities: 2+ pulses in the radial and dorsalis pedis bilaterally. Assessment: 1. Presyncope, unsteady gait, vertigo. Continue with meclizine and recommendations per physical therapy. Apparently she was not feeling up to working with physical therapy yesterday, they will reattempt again today. Once she is stable for discharge, it appears that we will plan on sending her home with services as noted by [facility]. 2. Acute kidney injury. Resolved. 3. Anemia. Status post blood transfusion of 1 unit on 11/13/2016. She continues to be stable. 4. Hypertension. Pressures continue to be within acceptable limits. Continue with Norvasc, Lotensin. 5. Paroxysmal atrial fibrillation with history of aortic valve replacement, bioprosthetic valve. Continue with Xarelto 6. Hypomagnesemia. Resolved today, continue with oral magnesium supplementation.. 7. DVT prophylaxis with Xarelto My preceptor for this patient encounter was physically present in the building during the encounter and was fully available. As needed, all aspects of the patient interview, examination, medical decision making process, and medical care plan development were reviewed and approved by the preceptor. Preceptor is aware and concurs with the plan as stated in the body of this note and will attest to such by his/her cosignature. VS, I&O, 24H, Fishbone Vital Signs/I&O Vital Signs Date Time Temp Pulse Resp B/P (MAP) Pulse Ox O2 Delivery O2 Flow Rate FiO2 11/19/16 08:42 98 140/63 11/19/16 05:02 97.9 16 99 Room Air I&O- Last 24 Hours up to 6 AM 11/20/16 06:00 Intake Total 240 ml Balance 240 ml Laboratory Data 24H LABS Laboratory Tests 2 11/19/16 05:57: Anion Gap 8, Glomerular Filtration Rate > 60.0, Blood Urea Nitrogen 18, Creatinine 0.87, Sodium Level 140, Potassium Level 4.0, Chloride Level 106, Carbon Dioxide Level 26, Calcium Level 7.7L, Magnesium Level 1.8 CBC/BMP Laboratory Tests 11/19/16 05:57 Red Blood Count 3.45 L, Mean Corpuscular Volume 87.0, Mean Corpuscular Hemoglobin 28.1, Mean Corpuscular Hemoglobin Concent 32.3, Red Cell Distribution Width 14.1, Calcium Level 7.7 L Microbiology Microbiology 11/12/16 Blood Culture - Final, Complete NO GROWTH AFTER 5 DAYS 11/12/16 Blood Culture - Final, Complete NO GROWTH AFTER 5 DAYS 11/12/16 Urine Culture - Final, Complete Escherichia Coli SISI OVERTON DO Nov 19, 2016 10:59
[2016-11-19 14:00] VITALS: BP 140/63
[2016-11-19] MEDS: RIVAROXABAN 15 MG TAB (XARELTO) PO SCH (17:20)
[2016-11-19] MEDS: MECLIZINE 25 MG TABLET PO PRN (21:03)
[2016-11-19 22:00] VITALS: BP 134/60
[2016-11-20] MEDS: MECLIZINE 25 MG TABLET PO PRN (05:42)
[2016-11-20 06:00] VITALS: BP 142/80
[2016-11-20 08:35] LABS: MEAN CORPUSCULAR HEMOGLOBIN 28.3 pg (27.0-33.0); MEAN CORPUSCULAR HGB CONC 32.9 g/dl (32.0-36.5); MEAN CORPUSCULAR VOLUME 86.1 fl (80.0-96.0); RED CELL DISTRIBUTION WIDTH 14.1 % (11.5-14.5); WHITE BLOOD COUNT 8.5 10^3/uL (4.0-10.0)
[2016-11-20] MEDS: MIRALAX *UNIT DOSE* 17GM PACKET PO SCH (08:41)
[2016-11-20] MEDS: SENOKOT S TAB PO SCH ×2 (08:41→21:07)
[2016-11-20] MEDS: MAGNESIUM OXIDE 400 MG TAB (MAG-OX) PO SCH (08:41)
[2016-11-20] MEDS: BENAZEPRIL 5 MG TAB PO SCH (08:42)
[2016-11-20] MEDS: amLODIPine 5 MG TAB PO SCH (08:42)
[2016-11-20 09:05] LABS: ANION GAP 5 MEQ/L (8-16); BLOOD UREA NITROGEN 19 MG/DL (7-18); CALCIUM LEVEL 8.4 MG/DL (8.8-10.2); CARBON DIOXIDE LEVEL 29 MEQ/L (21-32); CHLORIDE LEVEL 104 MEQ/L (98-107); GLOMERULAR FILTRATION RATE > 60.0 (>32); GLUCOSE, FASTING 89 MG/DL (83-110); MAGNESIUM LEVEL 1.9 MG/DL (1.8-2.4); POTASSIUM SERUM 4.2 MEQ/L (3.5-5.1); SODIUM LEVEL 138 MEQ/L (136-145)
--- NOTE | 2016-11-20 11:05 | IPNPDOC ---
Date Seen The patient was seen on 11/20/16. Progress Note Hospitalist Progress Note Subjective: Ms. Davis was reclined in bed this morning. She does appear to be a little bit more down this morning, she is hoping to be able to go home. Otherwise, she has no complaints, and her review of systems is negative with the exception of feeling weak and wobbly upon standing, and intermittent vertigo. Objective: General: Awake, alert, oriented 3. No acute distress. HEENT: Head normocephalic, atraumatic. Respiratory: Clear to auscultation bilaterally. Cardiovascular: Distant heart sounds, regular rate and rhythm, with no rubs, gallops, or murmur. Abdomen: Soft, nontender, nondistended, no hepatosplenomegaly appreciated. Bowel sounds present. Extremities: 2+ pulses in the radial and dorsalis pedis bilaterally. Assessment: 1. Presyncope, unsteady gait, vertigo. Continue with meclizine and recommendations per physical therapy. Plan is now to have her go to either short-term rehabilitation or a skilled nation facility. 2. Acute kidney injury. Resolved. 3. Anemia. Status post blood transfusion of 1 unit on 11/13/2016. Stable. 4. Hypertension. Continue with Norvasc, Lotensin. 5. Paroxysmal atrial fibrillation with history of aortic valve replacement, bioprosthetic valve. Continue Xarelto 6. Hypomagnesemia. Results, however she is slightly higher today than yesterday. I will switch her magnesium once daily dosing instead of twice a day , and we will continue to monitor. 7. DVT prophylaxis with Xarelto My preceptor for this patient encounter was physically present in the building during the encounter and was fully available. As needed, all aspects of the patient interview, examination, medical decision making process, and medical care plan development were reviewed and approved by the preceptor. Preceptor is aware and concurs with the plan as stated in the body of this note and will attest to such by his/her cosignature. VS, I&O, 24H, Fishbone Vital Signs/I&O Vital Signs Date Time Temp Pulse Resp B/P (MAP) Pulse Ox O2 Delivery O2 Flow Rate FiO2 11/20/16 08:42 146/70 11/20/16 08:42 84 11/20/16 06:00 97.9 17 97 Room Air I&O- Last 24 Hours up to 6 AM 11/21/16 06:00 Intake Total 240 ml Balance 240 ml Laboratory Data 24H LABS Laboratory Tests 2 11/20/16 08:27: Anion Gap 5L, Glomerular Filtration Rate > 60.0, Blood Urea Nitrogen 19H, Creatinine 0.80, Sodium Level 138, Potassium Level 4.2, Chloride Level 104, Carbon Dioxide Level 29, Calcium Level 8.4L, Magnesium Level 1.9 CBC/BMP Laboratory Tests 11/20/16 08:27 Red Blood Count 3.46 L, Mean Corpuscular Volume 86.1, Mean Corpuscular Hemoglobin 28.3, Mean Corpuscular Hemoglobin Concent 32.9, Red Cell Distribution Width 14.1, Calcium Level 8.4 L Microbiology Microbiology 11/12/16 Blood Culture - Final, Complete NO GROWTH AFTER 5 DAYS 11/12/16 Blood Culture - Final, Complete NO GROWTH AFTER 5 DAYS 11/12/16 Urine Culture - Final, Complete Escherichia Coli SISI OVERTON DO Nov 20, 2016 11:04
[2016-11-20 14:00] VITALS: BP 128/59
[2016-11-20] MEDS: RIVAROXABAN 15 MG TAB (XARELTO) PO SCH (18:09)
[2016-11-20 22:00] VITALS: BP 154/67
[2016-11-21] MEDS: ACETAMINOPHEN TAB 650MG DOSE (2X325MG) PO PRN ×2 (01:03→12:16)
[2016-11-21 06:00] VITALS: BP 138/63
[2016-11-21 06:21] LABS: MEAN CORPUSCULAR HEMOGLOBIN 27.8 pg (27.0-33.0); MEAN CORPUSCULAR HGB CONC 31.7 g/dl (32.0-36.5); MEAN CORPUSCULAR VOLUME 87.8 fl (80.0-96.0); RED CELL DISTRIBUTION WIDTH 14.1 % (11.5-14.5); WHITE BLOOD COUNT 8.2 10^3/uL (4.0-10.0)
[2016-11-21 06:44] LABS: ANION GAP 7 MEQ/L (8-16); BLOOD UREA NITROGEN 16 MG/DL (7-18); CALCIUM LEVEL 8.5 MG/DL (8.8-10.2); CARBON DIOXIDE LEVEL 25 MEQ/L (21-32); CHLORIDE LEVEL 106 MEQ/L (98-107); CREATININE FOR GFR 0.88 MG/DL (0.55-1.02); GLOMERULAR FILTRATION RATE > 60.0 (>32); GLUCOSE, FASTING 85 MG/DL (83-110); MAGNESIUM LEVEL 1.9 MG/DL (1.8-2.4); POTASSIUM SERUM 4.3 MEQ/L (3.5-5.1); SODIUM LEVEL 138 MEQ/L (136-145)
[2016-11-21] MEDS: MIRALAX *UNIT DOSE* 17GM PACKET PO SCH (09:22)
[2016-11-21] MEDS: amLODIPine 5 MG TAB PO SCH (09:23)
[2016-11-21] MEDS: MAGNESIUM OXIDE 400 MG TAB (MAG-OX) PO SCH (09:23)
[2016-11-21] MEDS: BENAZEPRIL 5 MG TAB PO SCH (09:23)
[2016-11-21] MEDS: SENOKOT S TAB PO SCH ×2 (09:23→21:07)
--- NOTE | 2016-11-21 11:27 | IPNPDOC ---
Date Seen The patient was seen on 11/21/16. Progress Note Subjective: Ms. Davis was sitting up in bed with legs dangling this am , denied any dizziness today. Denied any other complaints, and her review of systems is negative with the exception of feeling weak and wobbly upon standing. She wants to go home. Objective: General: Awake, alert, oriented 3. No acute distress. HEENT: Head normocephalic, atraumatic. Respiratory: Clear to auscultation bilaterally. Cardiovascular: Distant heart sounds, regular rate and rhythm, with no rubs, gallops, or murmur. Abdomen: Soft, nontender, nondistended, no hepatosplenomegaly appreciated. Bowel sounds present. Extremities: 2+ pulses in the radial and dorsalis pedis bilaterally. Assessment: 1. Presyncope, unsteady gait, vertigo. Continue with meclizine and recommendations per physical therapy. Plan is now to have her go to either short-term rehabilitation or a skilled nation facility. 2. Acute kidney injury. Resolved. 3. Chronic Anemia. Status post blood transfusion of 1 unit on 11/13/2016. Stable. No iron deficiency , no vit b12 or folate def, stool occult blood is negative , Has abnormal IGG kappa m spike in blood as seen in 2011 and had bone marrow biopsy before to follow up with PCP and manuscript editor. 4. Hypertension. Continue with Norvasc, Lotensin. 5. Paroxysmal atrial fibrillation with history of aortic valve replacement, bioprosthetic valve. Continue Xarelto 6. Hypomagnesemia. Results, however she is slightly higher today than yesterday. I will switch her magnesium once daily dosing instead of twice a day , and we will continue to monitor. 7. DVT prophylaxis with Xarelto VS, I&O, 24H, Fishbone Vital Signs/I&O Vital Signs Date Time Temp Pulse Resp B/P (MAP) Pulse Ox O2 Delivery O2 Flow Rate FiO2 11/21/16 09:23 138/63 11/21/16 09:23 86 11/21/16 09:00 Room Air 11/21/16 06:00 98.2 18 95 I&O- Last 24 Hours up to 6 AM 11/22/16 05:59 Intake Total 330 ml Output Total 150 ml Balance 180 ml Laboratory Data 24H LABS Laboratory Tests 2 11/21/16 06:06: Anion Gap 7L, Glomerular Filtration Rate > 60.0, Blood Urea Nitrogen 16, Creatinine 0.88, Sodium Level 138, Potassium Level 4.3, Chloride Level 106, Carbon Dioxide Level 25, Calcium Level 8.5L, Magnesium Level 1.9 CBC/BMP Laboratory Tests 11/21/16 06:06 Red Blood Count 3.45 L, Mean Corpuscular Volume 87.8, Mean Corpuscular Hemoglobin 27.8, Mean Corpuscular Hemoglobin Concent 31.7 L, Red Cell Distribution Width 14.1, Calcium Level 8.5 L Microbiology Microbiology 11/12/16 Blood Culture - Final, Complete NO GROWTH AFTER 5 DAYS 11/12/16 Blood Culture - Final, Complete NO GROWTH AFTER 5 DAYS 11/12/16 Urine Culture - Final, Complete Escherichia Coli REX ARRIETA MD Nov 21, 2016 11:27
[2016-11-21 14:00] VITALS: BP 119/56
[2016-11-21] MEDS: RIVAROXABAN 15 MG TAB (XARELTO) PO SCH (17:26)
[2016-11-21 22:00] VITALS: BP 145/67
[2016-11-22 06:00] VITALS: BP 151/68
[2016-11-22 06:26] LABS: MEAN CORPUSCULAR HGB CONC 32.4 g/dl (32.0-36.5); MEAN CORPUSCULAR VOLUME 86.4 fl (80.0-96.0); RED CELL DISTRIBUTION WIDTH 13.9 % (11.5-14.5); WHITE BLOOD COUNT 7.5 10^3/uL (4.0-10.0)
[2016-11-22 06:44] LABS: ANION GAP 7 MEQ/L (8-16); BLOOD UREA NITROGEN 18 MG/DL (7-18); CALCIUM LEVEL 8.8 MG/DL (8.8-10.2); CARBON DIOXIDE LEVEL 27 MEQ/L (21-32); CHLORIDE LEVEL 104 MEQ/L (98-107); CREATININE FOR GFR 0.88 MG/DL (0.55-1.02); GLOMERULAR FILTRATION RATE > 60.0 (>32); GLUCOSE, FASTING 93 MG/DL (83-110); SODIUM LEVEL 138 MEQ/L (136-145)
[2016-11-22 07:59] VITALS: BP 146/68
[2016-11-22] MEDS: SENOKOT S TAB PO SCH ×2 (09:00→20:25)
[2016-11-22] MEDS: BENAZEPRIL 5 MG TAB PO SCH (09:01)
[2016-11-22] MEDS: MIRALAX *UNIT DOSE* 17GM PACKET PO SCH (09:01)
[2016-11-22 09:02] VITALS: BP 146/68
[2016-11-22] MEDS: MAGNESIUM OXIDE 400 MG TAB (MAG-OX) PO SCH (09:02)
[2016-11-22] MEDS: ACETAMINOPHEN TAB 650MG DOSE (2X325MG) PO PRN ×3 (09:02→09:40)
[2016-11-22] MEDS: amLODIPine 5 MG TAB PO SCH (09:02)
--- NOTE | 2016-11-22 13:11 | IPNPDOC ---
Date Seen The patient was seen on 11/22/16. Progress Note Subjective: Ms. Davis was laying in bed, she is really usual pleasant self. She continues to have troubles with inspected debility upon standing, and intermittent vertigo /dizziness. She wants to go home, but is still not quite safe to do so. Objective: General: Awake, alert, oriented 3. No acute distress. HEENT: Head normocephalic, atraumatic. Respiratory: Clear to auscultation bilaterally. Cardiovascular: Distant heart sounds, regular rate and rhythm, with no rubs, gallops, or murmur. Abdomen: Soft, nontender, nondistended, no hepatosplenomegaly appreciated. Bowel sounds present. Extremities: 2+ pulses in the radial and dorsalis pedis bilaterally. Assessment: 1. Presyncope, unsteady gait, vertigo. Continue with meclizine and recommendations per physical therapy. Plan is now to have her go to either short-term rehabilitation or a skilled nation facility. She will be transferred to a status today. 2. Acute kidney injury. Resolved. 3. Chronic Anemia. Status post blood transfusion of 1 unit on 11/13/2016. Stable. No iron deficiency , no vit b12 or folate def, stool occult blood is negative , Has abnormal IGG kappa m spike in blood as seen in 2011 and had bone marrow biopsy before to follow up with PCP and religion teacher. 4. Hypertension. Continue with Norvasc, Lotensin. 5. Paroxysmal atrial fibrillation with history of aortic valve replacement, bioprosthetic valve. Continue Xarelto 6. Hypomagnesemia. Stable, continue with oral supplementation once daily 7. DVT prophylaxis with Xarelto VS, I&O, 24H, Fishbone Vital Signs/I&O Vital Signs Date Time Temp Pulse Resp B/P (MAP) Pulse Ox O2 Delivery O2 Flow Rate FiO2 11/22/16 09:02 84 146/68 11/22/16 07:59 98.4 16 97 Room Air I&O- Last 24 Hours up to 6 AM 11/23/16 06:00 Intake Total 240 ml Balance 240 ml Laboratory Data 24H LABS Laboratory Tests 2 11/22/16 05:41: Anion Gap 7L, Glomerular Filtration Rate > 60.0, Blood Urea Nitrogen 18, Creatinine 0.88, Sodium Level 138, Potassium Level 4.0, Chloride Level 104, Carbon Dioxide Level 27, Calcium Level 8.8 CBC/BMP Laboratory Tests 11/22/16 05:41 Red Blood Count 3.54 L, Mean Corpuscular Volume 86.4, Mean Corpuscular Hemoglobin 28.0, Mean Corpuscular Hemoglobin Concent 32.4, Red Cell Distribution Width 13.9, Calcium Level 8.8 Microbiology Microbiology 11/12/16 Blood Culture - Final, Complete NO GROWTH AFTER 5 DAYS 11/12/16 Blood Culture - Final, Complete NO GROWTH AFTER 5 DAYS 11/22/16 Stool Occult Blood (DEBBY) - Final, Complete 11/12/16 Urine Culture - Final, Complete Escherichia Coli SISI OVERTON DO Nov 22, 2016 13:11
[2016-11-22 13:40] LABS: MEAN CORPUSCULAR HEMOGLOBIN 28.2 pg (27.0-33.0); MEAN CORPUSCULAR HGB CONC 32.5 g/dl (32.0-36.5); MEAN CORPUSCULAR VOLUME 86.6 fl (80.0-96.0); RED CELL DISTRIBUTION WIDTH 14.3 % (11.5-14.5); WHITE BLOOD COUNT 9.5 10^3/uL (4.0-10.0)
[2016-11-22 13:57] LABS: CALCIUM LEVEL 8.5 MG/DL (8.8-10.2); CREATININE FOR GFR 0.98 MG/DL (0.55-1.02); GLOMERULAR FILTRATION RATE 57.2 (>32); POTASSIUM SERUM 4.2 MEQ/L (3.5-5.1)
[2016-11-22 14:00] VITALS: BP 124/67
[2016-11-22] MEDS: RIVAROXABAN 15 MG TAB (XARELTO) PO SCH (17:59)
[2016-11-22 22:00] VITALS: BP 158/72
[2016-11-23] MEDS: MAGNESIUM OXIDE 400 MG TAB (MAG-OX) PO SCH (08:38)
[2016-11-23] MEDS: amLODIPine 5 MG TAB PO SCH (08:38)
[2016-11-23] MEDS: SENOKOT S TAB PO SCH (08:38)
[2016-11-23] MEDS: MIRALAX *UNIT DOSE* 17GM PACKET PO SCH (08:38)
[2016-11-23] MEDS: BENAZEPRIL 5 MG TAB PO SCH (08:39)
[2016-11-23] MEDS ORDERED: MECL-68 PO (13:23)
[2016-11-23] MEDS ORDERED: MAG400TA PO (13:23)
[2016-11-23 14:00] VITALS: BP 131/60
--- NOTE | 2016-11-23 21:31 | DS.PDOC ---
Discharge Summary General Date of Admission Nov 12, 2016 at 20:19 Date of Discharge 11/23/2016 Discharge Summary PRIMARY CARE PHYSICIAN: Dr. Speedy Lea ATTENDING AT TIME OF DISCHARGE: Dr. Tonie Sorenson DISCHARGE DIAGNOS(E)S: 1. Acute kidney injury 2. Presyncope, unsteady gait, vertigo 3. Upset stomach with nausea and vomiting 4. Chronic anemia 5. Hypertension 6. Paroxysmal atrial fibrillation with history of aortic valve replacement with a bioprosthetic valve 7. Hypomagnesemia 8. Mild dementia HPI & HOSPITAL COURSE: Ms. Davis is an 86-year-old female who presented to the emergency department with complaints of nausea and vomiting, she was subsequently noted to have an acute kidney injury. She also was complaining of vertigo, unsteadiness on her feet, inability to walk without feeling dizzy. CT of the abdomen and pelvis as well as an abdominal ultrasound did not reveal any etiology for her GI upset. IV hydration ensued and she quickly recovered from her GI upset, however she did have persistent presyncope and vertigo. 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 During her hospitalization she did continue to work with physical therapy, and she was treated with a [place]-Hallpike maneuver with no improvement in her symptoms. She does continue to take meclizine, and continues to have mild vertiginous symptoms. She does appear to be sufficiently stable at this time such that she may be able to go home with services. On today the day of discharge she once again does not have any complaints, and is quite looking forward to going home. Her family has coordinated to be able to provide 24/7 care for her. Her review of systems is entirely negative. PHYSICAL EXAMINATION ON DISCHARGE: GENERAL: Awake, alert, oriented 3. She is in no acute distress. CARDIOVASCULAR EXAMINATION: Distant heart sounds although it appears that she has regular rate and rhythm, with no rubs, gallops, or murmur. RESPIRATORY EXAMINATION: Clear to auscultation bilaterally with no wheezes, rales, or rhonchi. ABDOMINAL EXAMINATION: Soft, nontender, nondistended. Bowel sounds present. EXTREMITIES: No clubbing or edema noted. 2+ pulses in the radial bilaterally. DISPOSITION: Home with services and 06/09 care by her family DISCHARGE INSTRUCTIONS: Follow-up with her primary care provider Dr. Lea within 7-10 days. Diet as tolerated. Activity as tolerated, recommended that she ambulate with walker and assist. If symptoms return, or if you experience worsening of your symptoms, please call your doctor or return to the emergency department. DISCHARGE MEDICATIONS: Continue taking from home: Norvasc 5 mg by mouth daily Benzapril 10 mg by mouth daily Xarelto 15 mg by mouth daily at bedtime New Medications: Magnesium oxide 400 mg by mouth daily Meclizine 25 mg by mouth every 6 hours when necessary for vertigo ITEMS THAT NEED OUTPATIENT FOLLOWUP: No labs or studies are pending My preceptor for this patient encounter was physically present in the building during the encounter and was fully available. As needed, all aspects of the patient interview, examination, medical decision making process, and medical care plan development were reviewed and approved by the preceptor. Preceptor is aware and concurs with the plan as stated in the body of this note and will attest to such by his/her cosignature. Vital Signs/I&Os Vital Signs Date Time Temp Pulse Resp B/P (MAP) Pulse Ox O2 Delivery O2 Flow Rate FiO2 11/23/16 14:00 97.7 102 19 131/60 (83) 96 Room Air I&O- Last 24 Hours up to 6 AM 11/24/16 06:00 Intake Total 360 ml Output Total 350 ml Balance 10 ml Microbiology Microbiology 11/22/16 Stool Occult Blood (DEBBY) - Final, Complete Discharge Medications Scheduled Amlodipine Besylate (Norvasc) 5 Mg Tab, 5 MG PO DAILY, (Reported) Benazepril Hcl (Lotensin) 10 Mg Tab, 10 MG PO DAILY, (Reported) Magnesium Oxide (Magnesium Oxide) 400 Mg Tab, 400 MG PO DAILY Rivaroxaban (Xarelto) 15 Mg Tab, 15 MG PO QHS, (Reported) Scheduled PRN Meclizine HCl (Meclizine HCl) 25 Mg Tab, 25 MG PO Q6HP PRN for dizziness Allergies Coded Allergies: Ferric Oxide (Verified Adverse Reaction, Intermediate, HYPOTENSION/SHOCK, 05/15/12) Latex (Verified Adverse Reaction, Unknown, 05/15/12) No Known Allergies (Verified , 11/10/06) Attending Note Attending Note I have seen and examined the above patient and agree with the above documentation. Time spent on discharge: >30 minutes SISI OVERTON DO Nov 23, 2016 21:31 TONIE SORENSON Nov 24, 2016 17:03
== END 2016-11-23 14:19 | disposition home health service (06) | DRG 683 ==
LOC: EDBD 13:44 → EDSEX 13:44 → M ED 13:44 → M ED INP 20:19 → M PCU 21:38 → M MSPAV 11-15 15:23
PROVIDERS: ADMIT Hospitalist; ATTEND Hospitalist
PROC: 30233N1 Transfusion of Nonautologous Red Blood Cells into Peripheral Vein, Percutaneous Approach (ICD-10-PCS; principal; 2016-11-13)
DX: N17.9 Acute kidney failure, unspecified (principal); E87.2 Acidosis; R26.89 Other abnormalities of gait and mobility; E83.42 Hypomagnesemia; D64.9 Anemia, unspecified; I48.0 Paroxysmal atrial fibrillation; I10 Essential (primary) hypertension; Z95.2 Presence of prosthetic heart valve; F03.90 Unspecified dementia, unspecified severity, without behavioral disturbance, psychotic disturbance, mood disturbance, and anxiety; R11.2 Nausea with vomiting, unspecified; Z88.8 Allergy status to other drugs, medicaments and biological substances; Z91.040 Latex allergy status; Z79.899 Other long term (current) drug therapy; Z86.73 Personal history of transient ischemic attack (TIA), and cerebral infarction without residual deficits; E55.9 Vitamin D deficiency, unspecified; D72.829 Elevated white blood cell count, unspecified